=== PATIENT | male | born 1990 | race Caucasian/White ===

== ENCOUNTER 2017-03-16 00:14 | Emergency (ER) | payer MEDICAID ==
[~2017-03-16] VITALS: Ht 195.6 cm; Wt 142.5 kg
[2017-03-16 00:23] VITALS: Ht 195.6 cm; Wt 142.5 kg
[2017-03-16] MEDS ORDERED: ALPRAZOLAM 1 MG TAB PO ONE (01:00)
[2017-03-16] MEDS ORDERED: ALPR0.25 PO (01:20)
--- NOTE | 2017-03-16 01:26 | ERD ---
ER Documentation Chief Complaint Date/Time DATE: 03/16/17 TIME: 01:22 Chief Complaint PANIC ATTACK, HIGH BLOOD PRESSURE TONIGHT HPI 26-year-old male presents here in emergency department for complaints of feeling anxious tonight, feels having a panic attack, sudden onset, and thinks blood pressure is elevated. Patient feels his heartbeat going faster. Patient denies any chest pain. Patient was never diagnosed to have high blood pressure, is not currently on any medications. Patient denies any dyspnea on exertion or dyspnea on lying down. Patient denies any headache or dizziness. Patient denies any numbness or tingling. Patient denies any other symptoms. ROS All systems reviewed and are negative except as per history of present illness. Medications Home Meds Active Scripts Alprazolam* (Xanax*) 0.25 Mg Tablet, 0.25 MG PO Q8H Y for ANXIETY, #10 TAB Prov:ILIANA ANDERSON NP 03/16/17 Allergies Allergies: Coded Allergies: No Known Drug Allergies (Verified Allergy, Unknown, 03/16/17) PMhx/Soc Medical and Surgical Hx: pt denies Medical Hx, pt denies Surgical Hx Hx Alcohol Use: No Hx Substance Use: No Hx Tobacco Use: No Smoking Status: Never smoker FmHx Family History: No coronary disease, No diabetes, No other Physical Exam Vitals Vital Signs Date Time Temp Pulse Resp B/P Pulse Ox O2 Delivery O2 Flow Rate FiO2 03/16/17 01:33 88 16 169/89 98 Room Air 03/16/17 00:23 98.6 91 22 176/95 95 Physical Exam GENERAL: The patient is well developed and appropriate for usual state of health, in no apparent distress. CHEST: Clear to auscultation bilaterally. There are no rales, wheezes or rhonchi. HEART: Regular rate and rhythm. No murmurs, clicks, rubs or gallops. No S3 or S4. ABDOMEN: Soft, nontender and nondistended. Good bowel sounds. No rebound or guarding. No gross peritonitis. No gross organomegaly or masses. No Quinteros sign or McBurney point tenderness. BACK: No midline or flank tenderness. EXTREMITIES: Equal pulses bilaterally. There is no peripheral clubbing, cyanosis or edema. No focal swelling or erythema. Full range of motion. Grossly neurovascularly intact. NEURO: Alert and oriented. Cranial nerves 2-12 intact. Motor strength in all 4 extremities with 5/5 strength. Sensation grossly intact. Normal speech and gait. SKIN: There is no apparent rash or petechia. The skin is warm and dry. HEMATOLOGIC AND LYMPHATIC: There is no evidence of excessive bruising or lymphedema. No gross cervical, axillary, or inguinal lymphadenopathy. PSYCHIATRIC: Patient is calm and cooperative at this time. Not verbalized some suicidal homicidal ideations. Results 24 hrs Current Medications Medications (Trade) Dose Ordered Sig/Phill Route PRN Reason Start Time Stop Time Status Last Admin Dose Admin Alprazolam (Xanax) 1 mg ONCE ONCE PO 03/16/17 01:00 03/16/17 01:01 DC 03/16/17 01:15 Xanax is given here in emergency department, after treatment, verbalized feeling much better EKG was done, read by me and is normal sinus rhythm at a rate of 90, normal axis , there is no ST changes or changes in the EKG that indicates any cardiac emergencies at this time. Patient's EKG was also reviewed by Dr. Bacon. Impression: no acute findings on EKG Procedures/MDM Medical decision making: Patient's symptoms most like it consistent with anxiety , patient has elevated blood pressure, most likely is from anxiety. This is the first time blood pressure is elevated. No symptoms of any hypertensive emergencies. Patient does not have any chest pain. Patient denies any headache or dizziness. No symptoms of any cardiomegaly pulmonary emergencies at this time , no suspicion for neurological emergencies at this time. Patient was given Xanax here in emergency department, felt much better afterwards. Prescription was given for Xanax to go home, is advised to see verification specialist for further evaluation and symptoms, possibly see primary care doctor for possible blood pressure evaluation, patient was advised to return to emergency department for any worsening symptoms. Patient's blood pressure was elevated (>120/80) but appears stable without evidence of hypertension emergency or urgency. The patient was counseled about the risks of hypertension and urged to pursue outpatient monitoring and therapy within a week with their primary care physician. Departure Diagnosis: Primary Impression: Anxiety Additional Impression: Elevated blood pressure reading Condition: Stable Patient Instructions: Anxiety Reaction, Hypertension, To Be Confirmed Referrals: COMMUNITY CLINICS YOU HAVE RECEIVED A MEDICAL SCREENING EXAM AND THE RESULTS INDICATE THAT YOU DO NOT HAVE A CONDITION THAT REQUIRES URGENT TREATMENT IN THE EMERGENCY DEPARTMENT. FURTHER EVALUATION AND TREATMENT OF YOUR CONDITION CAN WAIT UNTIL YOU ARE SEEN IN YOUR DOCTORS OFFICE WITHIN THE NEXT 1-2 DAYS. IT IS YOUR RESPONSIBILITY TO MAKE AN APPOINTMENT FOR FOLOW-UP CARE. IF YOU HAVE A PRIMARY DOCTOR --you should call your primary doctor and schedule an appointment IF YOU DO NOT HAVE A PRIMARY DOCTOR YOU CAN CALL OUR PHYSICIAN REFERRAL HOTLINE AT IF YOU CAN NOT AFFORD TO SEE A PHYSICIAN YOU CAN CHOSE FROM THE FOLLOWING [facility] [address] [facility] [address] [facility] [address] [facility] [address] [facility] [address] [facility]. [facility] [address] [facility]. [facility] YOU HAVE RECEIVED A MEDICAL SCREENING EXAM AND THE RESULTS INDICATE THAT YOU DO NOT HAVE A CONDITION THAT REQUIRES URGENT TREATMENT IN THE EMERGENCY DEPARTMENT. FURTHER EVALUATION AND TREATMENT OF YOUR CONDITION CAN WAIT UNTIL YOU ARE SEEN IN YOUR DOCTORS OFFICE WITHIN THE NEXT 1-2 DAYS. IT IS YOUR RESPONSIBILITY TO MAKE AN APPOINTMENT FOR FOLOW-UP CARE. IF YOU HAVE A PRIMARY DOCTOR --you should call your primary doctor and schedule and appointment IF YOU DO NOT HAVE A PRIMARY DOCTOR YOU CAN CALL OUR PHYSICIAN REFERRAL HOTLINE AT . IF YOU CAN NOT AFFORD TO SEE A PHYSICIAN YOU CAN CHOSE FROM THE FOLLOWING [facility]: [facility] [address] [place] [address] [facility] [address] [place] [address] [facility] [address] [place] [address] ILIANA ANDERSON NP Mar 16, 2017 01:26
[2017-03-16 01:33] VITALS: BP 169/89; PULSE 88; RESP 16
== END 2017-03-16 01:35 | disposition home or self-care (01) ==
LOC: FTE 00:14
DX: F41.9 Anxiety disorder, unspecified (principal); R03.0 Elevated blood-pressure reading, without diagnosis of hypertension; R00.2 Palpitations
CPT/HCPCS: 93005; Z7610